=== PATIENT | female | born 1990 | race Caucasian/White ===

== ENCOUNTER → 2016-12-29 | Emergency (ER) | payer OTHER ==
[~2016-12-29] MED LIST: MACR100C2 PO; NAPR500 PO; ONDANSETRON ODT 4 MG TAB PO ONE; ZOFR4TAB3 SL
--- NOTE | 2016-12-29 19:53 | PD ---
HPI Chief Complaint nausea/vomiting and abdominal pain Date Seen: Dec 29, 2016 Travel History International Travel<30 Days: No Contact w/Intl Traveler<30Days: No Known Affected Area: No History of Present Illness HPI This is a 26y/o at 21w2d who presented to the [facility] with reports of RUQ pain , since 4pm, vaginal pain and nausea with vomiting at 4:30p. She denies vaginal bleeding or leakage of fluid with reports of active movements. She denies sick contacts or unusual foods. She is tolerating po liquids and ate a grilled cheese sandwich at noon. care with Dr. Shirley, no records available for review, care uncomplicated per patient. 1. Morbid obesity in . Para: 0 : 1 History Past Medical History Medical History: Denies Significant Hx Past Surgical History Narrative Surgical Left Knee surgery 2004 and 2009 Family History Family History: Negative Social History Alcohol Use: No Tobacco Use: No Substance Abuse: No Allergies-Medications (Allergen,Severity, Reaction): Coded Allergies: Sudafed (Verified Allergy, Severe, THROAT SWELLING, 01/05/16) Home Meds Active Scripts Naproxen (Naprosyn)500 Mg [id number] Mg PO BID #20 TAB Prov:Clifton Aguilera MD 01/05/16 Review of Systems Except as stated in HPI: all other systems reviewed are Neg Physical Exam Narrative GENERAL: Well-nourished, well-developed patient, + post tussive emesis SKIN: Warm and dry. HEAD: Normocephalic and atraumatic. EYES: No scleral icterus. No injection or drainage. ENT: No nasal drainage noted. Mucous membranes pink. Airway patent. NECK: Supple, trachea midline. No JVD. CARDIOVASCULAR: Regular rate and rhythm without murmurs, gallops, or rubs. RESPIRATORY: Breath sounds equal bilaterally. No accessory muscle use. BREASTS: Bilateral exam showed no masses , no retractions, no nipple discharge. ABDOMEN/GI: Abdomen soft, non-tender, bowel sounds present, no rebound, no guarding Gravid to 20 +weeks size GENITOURINARY: External Genitalia: intact and normal in appearance VE deferred Uterine Contractions: None FHT's: + EXTREMITIES: No cyanosis or edema. BACK: Nontender without obvious deformity. No CVA tenderness. NEUROLOGICAL: Awake and alert. Motor and sensory grossly within normal limits. Five out of 5 muscle strength in all muscle groups. Normal speech. Data Data Vital Signs Reviewed: Yes Orders Vital Signs (Adult) .ON ADMISSION (12/29/16 18:37) ^ Labor Status (12/29/16 18:37) Urinalysis - C+S If Indicated (12/29/16 18:37) Ondansetron Odt (Zofran Odt) (12/29/16 18:45) Labs Laboratory Tests Test 12/29/16 18:20 Urine Color YELLOW Urine Turbidity HAZY Urine pH 5.5 Urine Specific Miller 1.023 Urine Protein TRACE mg/dL Urine Glucose (UA) NEG mg/dL Urine Ketones NEG mg/dL Urine Occult Blood SMALL Urine Nitrite NEG Urine Bilirubin NEG Urine Urobilinogen LESS THAN 2.0 MG/DL Urine Leukocyte Esterase LARGE Urine RBC 6 /hpf Urine WBC 15 /hpf Urine Squamous Epithelial 26 /hpf Cells Urine Mucus FEW /lpf Microscopic Urinalysis Comment CULTURE INDICATED Renal ultrasound: no nephrolithiasis, no hydronephrosis noted MDM Medical Record Reviewed: No Narrative Course / MDM 26y/o at 21w2d who presents with reports of ruq pain. -ua negative -no evidence of PTL -received 1 dosage of Zofran and was tolerated a snack Plan -d/c home -f/u with Dr. Yeung as scheduled -rx zofran and macrobid Diagnosis Diagnosis: Primary Impression: Nausea and vomiting during prior to 22 weeks gestation Additional Impression: UTI (urinary tract infection) in in second trimester Disposition: 01 DISCHARGE HOME Condition: Good Scripts Nitrofurantoin Monohydrate Macrocrystals (Macrobid)100 Mg [id number] Mg PO BID #14 CAP Ref 0 Prov:Karen Rain MD 12/29/16 Ondansetron Odt (Zofran Odt)4 Mg Tab4 Mg SL Q6HR PRN (Nausea/Vomiting) #45 TAB Ref 1 Prov:Karen Rain MD 12/29/16 Patient Instructions: Abdominal Pain in (ED) Departure Forms: Work Release Enter return to work date: Dec 31, 2016 Special Instructions: Pt to be off work on 12/29 and 12/30. Karen Rain MD Dec 29, 2016 19:53
[2016-12-29 19:57] LABS: BLOOD, URINE SMALL (NEG); GLUCOSE,URINE NEG (NEG); KETONE, URINE NEG (NEG); MUCUS URINE FEW /lpf (OCC); NITRITE,URINE NEG (NEG); PH, URINE 5.5 (5.0-8.5); SQUAMOUS EPITHELIAL CELL URINE 26 /hpf (0-5); URINE COLOR YELLOW (YELLW/STRAW)
[2016-12-29 19:58] LABS: COMMENT (UR) CULTURE INDICATED; CULTURE IF INDICATED CULTURE INDICATED
--- NOTE | 2016-12-29 21:18 | RADRPT ---
EXAM DATE/TIME: 12/29/2016 20:28 [facility] COMPARISON: No previous studies available for comparison. INDICATIONS : Right flank pain. MEDICAL HISTORY : . SURGICAL HISTORY : Left knee surgery. ENCOUNTER: Initial ACUITY: 1 day PAIN SCORE: 6/10 LOCATION: Bilateral flank MEASUREMENTS: RIGHT KIDNEY: 13.4 x 6.1 x 6.9 cm LEFT KIDNEY: 13.6 x 6.4 x 6.6 cm FINDINGS: RIGHT KIDNEY: Renal cortex is normal in thickness and echotexture. No hydronephrosis, stone, or mass. LEFT KIDNEY: Renal cortex is normal in thickness and echotexture. No hydronephrosis, stone, or mass. BLADDER: Within normal limits given the degree of distension. CONCLUSION: No acute disease. Hilton Bear MD on December 29, 2016 at 21:15 Board Certified Radiologist. This report was verified electronically.
== END | disposition home or self-care (01) ==
LOC: HOBED 17:49
DX: O21.9 Vomiting of pregnancy, unspecified (principal); O23.42 Unspecified infection of urinary tract in pregnancy, second trimester; O99.212 Obesity complicating pregnancy, second trimester; Z3A.22 22 weeks gestation of pregnancy
CPT/HCPCS: 76775; 81001; 87086; 99284

== ENCOUNTER → 2017-02-27 | Outpatient (CLI) | payer OTHER ==
[~2017-02-27] MED LIST changes: -ONDANSETRON ODT 4 MG TAB PO ONE
[2017-02-27 11:29] LABS: HEMATOCRIT 36.4 % (35.0-46.0); REVIEW FLAG FINAL
== END ==
LOC: CLAB 09:32
PROVIDERS: ATTEND Obstetrics & Gynecology
DX: Z34.02 Encounter for supervision of normal first pregnancy, second trimester (principal)
CPT/HCPCS: 36415; 82951; 85014; 85018; 86703

== ENCOUNTER 2017-04-18 20:44 | Inpatient (IN) | payer OTHER ==
[~2017-04-18] VITALS: Ht 172.7 cm; Wt 145.0 kg
--- NOTE | 2017-04-18 21:29 | HHI.PR ---
Subjective Remarks NST report Indications: IUP at 37 weeks, morbid obesity, gestational hypertension heart rate with baseline in the 130s, moderate long-term variability, good accelerations, no decelerations noted. The category 1 heart rate tracing and a reactive NST Follow-up: As clinically indicated Final diagnosis IUP at 37 weeks, morbid obesity, gestational hypertension Rachana Avila MD Apr 18, 2017 21:29
[2017-04-18 21:30] VITALS: RESP 18
[2017-04-18] MEDS ORDERED: ACETAMIN 325 MG/BUTALBITAL 50 MG/CAFFEINE 40 MG TAB PO ONE (21:30)
[2017-04-18 21:31] VITALS: BP 110/66; PULSE 89
--- NOTE | 2017-04-18 21:35 | PD ---
HPI Chief Complaint Headache Travel History International Travel<30 Days: No Contact w/Intl Traveler<30Days: No Known Affected Area: No History of Present Illness HPI 26-year-old , IUP at 37.0 and care, complicated by history of migraine headache weeks, obesity, syphilis The patient presents reporting onset of headache at about 1:30 this afternoon. She took Tylenol at that time with no relief of her headache. There are no other aggravating or alleviating factors. She reports that last week when she went to the office her blood pressure was elevated in the 150s over 90s. When she got off work this evening she went to [facility] and took her blood pressure because of the headache. She reports her first blood pressure on automated machine was 153/88 and a follow-up with a diastolic of 96. She denies any visual changes, right upper quadrant, or epigastric pain. She denies any leaking of fluid, vaginal bleeding, or painful contractions or cramping. She reports normal movement. Weeks Gestation: 37 Para: 0 : 1 History Past Medical History Narrative Medical Migraine headaches Morbid obesity Obstetric History Obstetric History Past Surgical History Narrative Surgical Knee surgery 2 Family History Narrative Family History HTN Factor K blood disorder Social History Alcohol Use: No Tobacco Use: No Substance Abuse: No Allergies-Medications (Allergen,Severity, Reaction): Coded Allergies: pseudoephedrine (Unverified Allergy, Severe, THROAT SWELLING, 02/19/17) Home Meds Active Scripts Nitrofurantoin Monohydrate Macrocrystals (Macrobid) 100 Mg Cap, 100 MG PO BID for Infection, #14 CAP 0 Refills Prov:Karen Rain MD 12/29/16 Ondansetron Odt (Zofran Odt) 4 Mg Tab, 4 MG SL Q6HR Y for Nausea/Vomiting, #45 TAB 1 Refill Prov:Karen Rain MD 12/29/16 Naproxen (Naprosyn) 500 Mg Tab, 500 MG PO BID, #20 TAB Prov:Clifton Aguilera MD 01/05/16 Review of Systems Except as stated in HPI: all other systems reviewed are Neg Physical Exam Narrative GENERAL: Well-nourished, well-developed patient. SKIN: Warm and dry. HEAD: Normocephalic and atraumatic. EYES: No scleral icterus. No injection or drainage. ENT: No nasal drainage noted. Mucous membranes pink. Airway patent. NECK: Supple, trachea midline. No JVD. CARDIOVASCULAR: Regular rate and rhythm without murmurs, gallops, or rubs. RESPIRATORY: Breath sounds equal bilaterally. No accessory muscle use. BREASTS: Deferred ABDOMEN/GI: Abdomen soft, non-tender, bowel sounds present, no rebound, no guarding Gravid GENITOURINARY: Deferred EXTREMITIES: No cyanosis or edema. BACK: Nontender without obvious deformity. No CVA tenderness. NEUROLOGICAL: Awake and alert. Motor and sensory grossly within normal limits. Five out of 5 muscle strength in all muscle groups. Normal speech. Psychiatric: Grossly normal memory and affect Musculoskeletal: Grossly normal range of motion, gait, muscle strength Data Data Orders Orders [id number] 325-50-40 Mg (Fioricet 3 (04/18/17 21:30) Vital Signs (Adult) .ON ADMISSION (04/18/17 21:23) ^ Labor Status (04/18/17 21:23) Urinalysis - C+S If Indicated (04/18/17 21:23) ^ Non Stress Test (04/18/17 21:23) ^ Hydration (04/18/17 21:23) Cbc No Diff, Includes Plts (04/18/17 21:23) Comprehensive Metabolic Panel (04/18/17 21:23) Uric Acid (04/18/17 21:23) Protein Creat Ratio, Random Ur (04/18/17 21:25) MDM Plan Assessment/plan: 1. IUP at 37.0 2. Possible gestational hypertension versus preeclampsia: Patient with elevated blood pressures in the office last week according to her report. Patient self presented due to headache with elevated blood pressure at [facility]. Blood pressures are normal here but with slightly elevated AST, ALT, and PC ratio on laboratory evaluation. Discussed with Dr. Yeung, will admit for 24- hour urine and blood pressure monitoring. Strict preeclampsia precautions. 3. well-being: Reassuring testing with reactive NST and category 1 heart rate tracing. heart rate tracing reassuring and appropriate for gestational age. 4. Morbid obesity 5. History of syphilis 6. History of migraine headaches 7. Patient was scheduled to Follow-up with Dr. Yeung tomorrow for blood pressure check but will admit for 24-hour observation to rule out preeclampsia, Dr. Yeung aware Rachana Avila MD Apr 18, 2017 21:35
[2017-04-18 21:47] LABS: HEMATOCRIT 35.9 % (35.0-46.0); MEAN CELL VOLUME 79.3 FL (80.0-100.0); MEAN CORPUSCULAR HEMOGLOBIN 25.2 PG (27.0-34.0); MEAN CORPUSCULAR HGB CONC 31.7 % (32.0-36.0); PLATELET COUNT 253 TH/MM3 (150-450); RED BLOOD COUNT 4.53 MIL/MM3 (4.00-5.30); REVIEW FLAG FINAL; WHITE BLOOD COUNT 12.4 TH/MM3 (4.0-11.0)
[2017-04-18 21:54] LABS: BACTERIA, URINE RARE /hpf; BLOOD, URINE SMALL (NEG); COMMENT (UR) CULTURE INDICATED; CULTURE IF INDICATED CULTURE INDICATED; GLUCOSE,URINE NEG (NEG); KETONE, URINE NEG (NEG); MUCUS URINE FEW /lpf (OCC); NITRITE,URINE NEG (NEG); SQUAMOUS EPITHELIAL CELL URINE 4 /hpf (0-5); URINE COLOR YELLOW (YELLW/STRAW)
[2017-04-18 22:02] LABS: ALT (GPT) 67 U/L (10-53); ANION GAP 7 MEQ/L (5-15); AST (GOT) 38 U/L (15-37); BICARBONATE 23.6 MEQ/L (21.0-32.0); BLOOD UREA NITROGEN 9 MG/DL (7-18); CHLORIDE 108 MEQ/L (98-107); GLOMERULAR FILTRATION RATE 118 ML/MIN (>89); POTASSIUM 3.9 MEQ/L (3.5-5.1); SODIUM (NA) 139 MEQ/L (136-145)
[2017-04-18 22:06] LABS: ALKALINE PHOSPHATASE 161 U/L (45-117); TOTAL BILIRUBIN ADULT 0.2 MG/DL (0.2-1.0); URIC ACID 3.8 MG/DL (2.6-6.0)
[2017-04-18] MEDS ORDERED: ALUMINUM/MAGNESIUM/SIMETH 30 ML CUP PO PRN (22:45)
[2017-04-18] MEDS ORDERED: ACETAMINOPHEN 325 MG TAB PO PRN (22:45)
[2017-04-18] MEDS ORDERED: ZOLPIDEM TARTRATE 5 MG TAB PO PRN ×2 (22:45→23:15)
[2017-04-18] MEDS ORDERED: SODIUM CHLORIDE 0.9% FLUSH 10 ML FLUSH IV FLUSH PRN (22:45)
[2017-04-18] MEDS ORDERED: ONDANSETRON ODT 4 MG TAB PO PRN (22:45)
[2017-04-18] MEDS ORDERED: ONDANSETRON HCL 4 MG/2 ML VIAL IV PUSH PRN (22:45)
[2017-04-18 23:05] VITALS: RESP 18; TEMP 98.3
[2017-04-18 23:06] VITALS: BP 113/48; PULSE 84
[2017-04-19] VITALS (17 sets, daily range): BP systolic 111–154; BP diastolic 59–86; PULSE 87–124; RESP 18–20; TEMP 97.8–98.1
[2017-04-19] MEDS ORDERED: MULTIVIT/MIN/PREN/FOL AC/IRON PRENATAL TAB PO SCH (09:00)
[2017-04-19] MEDS ORDERED: DOCUSATE SODIUM 100 MG CAP PO SCH (09:00)
[2017-04-19] MEDS ORDERED: SODIUM CHLORIDE 0.9% FLUSH 10 ML FLUSH IV FLUSH SCH ×2 (09:00→21:00)
[2017-04-19 09:56] LABS: AUTOMATED NEUTROPHIL # 9.8 TH/MM3 (1.8-7.7); BASOPHIL % 0.1 % (0.0-2.0); EOSINOPHIL % 0.3 % (0.0-4.0); HEMATOCRIT 34.9 % (35.0-46.0); HEMO FLAGS DIFF FINAL; LYMPH % 15.1 % (9.0-44.0); LYMPHOCYTE # 1.8 TH/MM3 (1.0-4.8); MEAN CELL VOLUME 78.7 FL (80.0-100.0); MEAN CORPUSCULAR HEMOGLOBIN 25.8 PG (27.0-34.0); MEAN CORPUSCULAR HGB CONC 32.7 % (32.0-36.0); MONO % 3.7 % (0.0-8.0); NEUT % 80.8 % (16.0-70.0); PLATELET COUNT 229 TH/MM3 (150-450); RED BLOOD COUNT 4.43 MIL/MM3 (4.00-5.30); RED CELL DISTRIBUTION WIDTH 15.7 % (11.6-17.2); WHITE BLOOD COUNT 12.1 TH/MM3 (4.0-11.0)
[2017-04-19 10:16] LABS: ANION GAP 9 MEQ/L (5-15); AST (GOT) 40 U/L (15-37); BICARBONATE 21.1 MEQ/L (21.0-32.0); BLOOD UREA NITROGEN 5 MG/DL (7-18); CHLORIDE 104 MEQ/L (98-107); GLOMERULAR FILTRATION RATE 121 ML/MIN (>89); POTASSIUM 3.7 MEQ/L (3.5-5.1); SODIUM (NA) 134 MEQ/L (136-145)
[2017-04-19 10:18] LABS: ALT (GPT) 61 U/L (10-53)
[2017-04-19 10:19] LABS: ALKALINE PHOSPHATASE 149 U/L (45-117); TOTAL BILIRUBIN ADULT 0.3 MG/DL (0.2-1.0)
[2017-04-19] MEDS ORDERED: MISOPROSTOL 100 MCG TAB VAGINAL ONE (14:45)
[2017-04-19] MEDS ORDERED: PILL SPLITTER OTHER PRN (14:45)
[2017-04-19] MEDS ORDERED: SODIUM CHLOR 0.9% 1000 ML INJ 1,000 ML OTHER PRN (16:08)
[2017-04-19] MEDS ORDERED: OXYTOCIN 30 UNITS 500ML PREMIX IV ONE (16:15)
[2017-04-19] MEDS ORDERED: MINERAL OIL 10 ML VIAL TOPICAL PRN (16:15)
[2017-04-19] MEDS ORDERED: OXYTOCIN 30 UNITS-500ML PREMIX 500 ML IV SCH (16:15)
[2017-04-19] MEDS ORDERED: SODIUM CHLORIDE 0.9% FLUSH 10 ML FLUSH IV FLUSH PRN (16:15)
[2017-04-19] MEDS ORDERED: MISOPROSTOL 25 MCG SUPP VAGINAL PRN (16:15)
[2017-04-19] MEDS ORDERED: LIDOCAINE HCL 1% 50 ML VIAL INFIL PRN (16:15)
[2017-04-19] MEDS ORDERED: NS 1000 ML IV PRN (16:30)
[2017-04-19] MEDS ORDERED: NS 500 ML BOLUS IV PRN (16:30)
[2017-04-19] MEDS ORDERED: LACTATED RINGER'S 1000 ML IV SCH (16:30)
[2017-04-19] MEDS ORDERED: CITRIC ACID-SODIUM CITRATE LIQ 30 ML UDC PO SCH (16:30)
[2017-04-19] MEDS ORDERED: LIDOCAINE HCL 1% 50 ML VIAL I-DERMAL PRN (16:30)
[2017-04-19] MEDS ORDERED: ONDANSETRON HCL 4 MG/2 ML VIAL IV PUSH PRN (16:30)
[2017-04-19] MEDS ORDERED: LACTATED RINGER'S 1000 ML BOLUS IV PRN (16:30)
[2017-04-19] MEDS ORDERED: MISOPROSTOL 25 MCG SUPP VAGINAL SCH (19:15)
[2017-04-20] VITALS (105 sets, daily range): BP systolic 67–158; BP diastolic 19–105; PULSE 73–178; RESP 18–22; TEMP 97.7–98.6
--- NOTE | 2017-04-20 13:06 | HHI.PR ---
Subjective Remarks Doing well, Pain is controlled with the fentanyl. Feeling ok Objective Vital Signs Date Time Temp Pulse Resp B/P (MAP) Pulse Ox O2 Delivery O2 Flow Rate FiO2 04/20/17 12:40 98.6 04/20/17 12:40 18 04/20/17 12:32 79 143/51 (81) 04/20/17 12:09 89 142/64 (90) 04/20/17 11:26 89 126/73 (90) 04/20/17 11:17 147 04/20/17 11:17 67/45 (52) 04/20/17 11:01 86/70 (75) 04/20/17 10:31 82 146/76 (99) 04/20/17 10:16 86 138/88 (105) 04/20/17 10:01 78 131/87 (102) 04/20/17 09:46 104 139/88 (105) 04/20/17 09:27 82 148/92 (110) 04/20/17 09:01 89 144/80 (101) 04/20/17 08:46 83 135/80 (98) 04/20/17 08:31 90 118/68 (85) 04/20/17 08:16 88 135/47 (76) 04/20/17 08:01 88 118/72 (87) 04/20/17 07:46 116 04/20/17 07:31 73 117/97 (104) 04/20/17 07:25 86 128/70 (89) 04/20/17 07:24 84 111/98 (102) 04/20/17 07:01 87 129/79 (96) 04/20/17 06:01 82 131/58 (82) 04/20/17 05:50 97.7 04/20/17 05:33 18 04/20/17 05:01 97 146/64 (91) 04/20/17 04:01 84 148/70 (96) 04/20/17 04:00 18 04/20/17 03:59 83 148/65 (92) 04/20/17 01:50 97.8 18 04/20/17 01:10 85 122/68 (86) 04/20/17 01:00 18 04/20/17 00:02 100 97/72 (80) 04/19/17 23:50 18 04/19/17 22:53 18 04/19/17 22:02 106 111/63 (79) 04/19/17 22:00 98.0 18 04/19/17 21:32 87 140/78 (98) 04/19/17 20:01 100 131/79 (96) 04/19/17 19:42 104 125/59 (81) 04/19/17 18:24 95 154/63 (93) 04/19/17 16:00 18 04/19/17 16:00 98.1 04/19/17 15:10 102 153/71 (98) Result Diagram: 04/19/1792004/19/17920 Other Results Abdomen is gravid and non tender Cx 4/80/Vtx/-2 AROM is clear and internals placed Ext slg swollen Assessment and Plan Assessment and Plan IUP @ 37/2 Pre eclampsia elevated LFTs, Proteinuria, elevated pressure. AROM done now and internalized and expect a . Cecil Yeung MD Apr 20, 2017 13:06
[2017-04-20] MEDS ORDERED: MEASLES, MUMPS, RUBELLA VACCINE 0.5 ML VIAL SQ ONE (16:00)
[2017-04-20] MEDS ORDERED: DIPHTH/TETANUS/ACEL PERTUSSIS (BOOSTER) 0.5 ML VIAL/PFS IM ONE (16:00)
[2017-04-20] MEDS ORDERED: fentaNYL 2MCG-BUPIV 0.125% INJ 100 ML ONE (16:24)
[2017-04-20] MEDS ORDERED: LIDOCAINE HCL 1% PF 5 ML AMPULE ONE (16:45)
[2017-04-20] MEDS ORDERED: ePHEDrine/NS 25 MG/5 ML SYR ONE (17:11)
--- NOTE | 2017-04-20 20:05 | PD.OB.DELI ---
Weeks gestation: 37 Gest age assessed date: Apr 19, 2017 Pt started active labor?: Yes Active labor start date: Apr 19, 2017 Medical induction of labor?: Yes Medical induction start date: Apr 19, 2017 Artificial rupture of membrane: Yes Artificial ROM date: Apr 20, 2017 Anesthesia: Epidural Episiotomy: Midline Vaginal Delivery: Normal Presentation: Occiput anterior Nuchal Cord: x1 Delayed cord clamping (45 sec): Yes Infant: Female Delivery date: Apr 20, 2017 One Minute : 8 Five Minute : 9 Weight: 6/3 Placenta: Spontaneous delivery Laceration: Episiotomy, 1 deg Repair: Vicryl running Estimated blood loss: 300cc Additional Information Nice delivery of Afua Bilateral first degree upper labial lacerations Small first degree perineal laceration All repaired with 3-0 and 4-0 vicryl. Cecil Yeung MD Apr 20, 2017 20:05
[2017-04-20] MEDS ORDERED: DOCUSATE SODIUM 50 MG/SENNA 8.6 MG TAB PO PRN (20:15)
[2017-04-20] MEDS ORDERED: WITCH HAZEL 50%/GLYCERIN 12.5% 40 PAD JAR TOPICAL PRN (20:15)
[2017-04-20] MEDS ORDERED: CALCIUM GLUCONATE 10% 1 GM/10 ML VIAL IV PUSH PRN (20:15)
[2017-04-20] MEDS ORDERED: oxyCODONE/ACETAMINOPHEN 5 MG/325 MG TAB PO PRN (20:15)
[2017-04-20] MEDS ORDERED: OXYTOCIN 30 UNITS-500ML PREMIX 500 ML IV ONE (20:15)
[2017-04-20] MEDS ORDERED: OXYTOCIN 30 UNITS-500ML PREMIX 500 ML IV SCH (20:15)
[2017-04-20] MEDS ORDERED: ONDANSETRON ODT 4 MG TAB PO PRN (20:15)
[2017-04-20] MEDS ORDERED: BENZOCAINE 20% TOPICAL SPRAY 60 ML CAN TOPICAL PRN (20:15)
[2017-04-20] MEDS ORDERED: MAGNESIUM SULFATE 4 GM PREMIX 100 ML IV ONE (20:15)
[2017-04-20] MEDS ORDERED: ZOLPIDEM TARTRATE 5 MG TAB PO PRN (20:15)
[2017-04-20] MEDS ORDERED: ACETAMINOPHEN 325 MG TAB PO PRN (20:15)
[2017-04-20] MEDS ORDERED: SODIUM CHLORIDE 0.9% FLUSH 10 ML FLUSH IV FLUSH PRN (20:15)
[2017-04-20] MEDS ORDERED: ALUMINUM/MAGNESIUM/SIMETH 30 ML CUP PO PRN (20:15)
[2017-04-20] MEDS: MAGNESIUM SULFATE 40 GM PREMIX 1,000 ML IV SCH (21:00)
[2017-04-20] MEDS: SODIUM CHLORIDE 0.9% FLUSH 10 ML FLUSH IV FLUSH SCH (21:00)
[2017-04-21] VITALS (29 sets, daily range): BP systolic 132–171; BP diastolic 42–81; PULSE 93–144; RESP 17–22; TEMP 97.7–98.2; O2SAT 98
[2017-04-21 08:35] LABS: AUTOMATED NEUTROPHIL # 12.7 TH/MM3 (1.8-7.7); BASOPHIL # 0.1 TH/MM3 (0-0.2); BASOPHIL % 0.3 % (0.0-2.0); EOSINOPHIL % 0.3 % (0.0-4.0); HEMATOCRIT 32.8 % (35.0-46.0); HEMO FLAGS DIFF FINAL; LYMPH % 10.6 % (9.0-44.0); LYMPHOCYTE # 1.7 TH/MM3 (1.0-4.8); MEAN CORPUSCULAR HGB CONC 31.7 % (32.0-36.0); MONO % 7.6 % (0.0-8.0); NEUT % 81.2 % (16.0-70.0); PLATELET COUNT 271 TH/MM3 (150-450); RED BLOOD COUNT 4.16 MIL/MM3 (4.00-5.30); RED CELL DISTRIBUTION WIDTH 16.6 % (11.6-17.2); WHITE BLOOD COUNT 15.7 TH/MM3 (4.0-11.0)
[2017-04-21 09:12] LABS: ALKALINE PHOSPHATASE 134 U/L (45-117); ALT (GPT) 113 U/L (10-53); ANION GAP 11 MEQ/L (5-15); AST (GOT) 76 U/L (15-37); BICARBONATE 22.4 MEQ/L (21.0-32.0); BLOOD UREA NITROGEN 7 MG/DL (7-18); CHLORIDE 104 MEQ/L (98-107); GLOMERULAR FILTRATION RATE 118 ML/MIN (>89); POTASSIUM 3.8 MEQ/L (3.5-5.1); SODIUM (NA) 137 MEQ/L (136-145); TOTAL BILIRUBIN ADULT 0.2 MG/DL (0.2-1.0)
[2017-04-21] MEDS: IBUPROFEN 600 MG TAB PO PRN ×2 (12:20→18:26)
[2017-04-21] MEDS ORDERED: DIPHTH/TETANUS/ACEL PERTUSSIS (BOOSTER) 0.5 ML VIAL/PFS IM ONE (12:45)
--- NOTE | 2017-04-21 16:45 | HHI.OB ---
Subjective Post Day: 1 Remarks Doing well Baby is good Bleeding is normal Pain is controlled Objective Vitals/I&O Vital Signs Date Time Temp Pulse Resp B/P (MAP) Pulse Ox O2 Delivery O2 Flow Rate FiO2 04/21/17 15:17 93 143/77 04/21/17 13:00 18 04/21/17 11:01 156/80 (105) 04/21/17 11:01 112 04/21/17 09:01 115 152/69 (96) 04/21/17 09:00 18 04/21/17 08:00 18 04/21/17 07:51 111 147/57 (87) 04/21/17 07:45 98.0 04/21/17 07:33 109 164/75 (104) 04/21/17 07:26 105 160/81 (107) 04/21/17 07:01 111 171/78 (109) 04/21/17 06:01 93 170/68 (102) 04/21/17 06:00 18 04/21/17 05:00 18 04/21/17 04:01 144 148/42 (77) 04/21/17 03:00 97.7 18 04/21/17 02:01 95 150/66 (94) 04/21/17 01:15 18 04/21/17 01:01 106 142/60 (87) 04/21/17 00:45 18 04/21/17 00:33 110 135/65 (88) 04/21/17 00:15 18 04/21/17 00:01 95 132/55 (80) 04/20/17 23:15 97.9 18 04/20/17 23:02 130 127/97 (107) 04/20/17 22:01 119 135/62 (86) 04/20/17 21:46 128 132/84 (100) 04/20/17 21:31 124 120/100 (107) 04/20/17 21:26 116 157/75 (102) 04/20/17 21:16 113 143/68 (93) 04/20/17 21:10 116 140/66 (90) 04/20/17 21:01 111 141/58 (85) 04/20/17 21:00 98.0 04/20/17 20:56 110 150/60 (90) 04/20/17 20:47 118 154/64 (94) 04/20/17 20:35 18 04/20/17 20:30 18 04/20/17 20:16 115 121/70 (87) 04/20/17 20:15 18 04/20/17 20:02 120 102/19 (46) 04/20/17 20:00 18 04/20/17 19:46 108 143/49 (80) 04/20/17 19:45 98.0 18 04/20/17 19:31 114 143/93 (110) 04/20/17 19:11 115 148/88 (108) 04/20/17 19:01 91 121/60 (80) 04/20/17 18:51 113 106/56 (73) 04/20/17 18:50 131 04/20/17 18:45 101 04/20/17 18:41 110 109/72 (84) 04/20/17 18:40 83 04/20/17 18:35 85 04/20/17 18:32 75 122/52 (75) 04/20/17 18:30 88 04/20/17 18:25 98 04/20/17 18:21 91 123/66 (85) 04/20/17 18:20 93 04/20/17 18:15 96 04/20/17 18:11 92 128/58 (81) 04/20/17 18:01 92 120/72 (88) 04/20/17 18:00 101 04/20/17 17:55 103 04/20/17 17:51 105 97/59 (72) 04/20/17 17:50 99 04/20/17 17:45 102 04/20/17 17:41 96 127/67 (87) 04/20/17 17:40 98 04/20/17 17:35 91 04/20/17 17:31 95 151/66 (94) 04/20/17 17:30 86 04/20/17 17:30 98.4 18 04/20/17 17:20 92 04/20/17 17:19 98 150/57 (88) 04/20/17 17:16 81 158/47 (84) 04/20/17 17:15 86 04/20/17 17:13 80 141/58 (85) 04/20/17 17:10 96 10/14/17 17:10 135/44 (74) 04/20/17 17:07 178 125/97 (106) 04/20/17 17:05 90 04/20/17 17:04 89 152/55 (87) 04/20/17 17:01 97 144/77 (99) 04/20/17 17:00 102 04/20/17 16:58 98 145/65 (91) 04/20/17 16:55 104 04/20/17 16:51 106 132/105 (114) 04/20/17 16:50 113 04/20/17 16:45 113 Intake & Output 04/21/17 04/21/17 07:00 19:00 Intake Total 0 ml Balance 0 ml Blood Product IV Normal Saline Flush 0 ml Objective Remarks GENERAL: Well-nourished, well-developed patient. RESPIRATORY: No accessory muscle use. ABDOMEN/GI: Abdomen soft, non-tender. Fundus: Firm, non-tender at umbilicus. GENITOURINARY: Light to moderate bleeding. EXTREMITIES: No cyanosis or edema, non-tender, without signs of DVT. Medications and IVs Current Medications Medications (Trade) Dose Ordered Sig/Tamia Route Start Time Stop Time Status Last Admin (NS Flush) 2 ml BID IV FLUSH 04/20/17 21:00 (NS Flush) 2 ml UNSCH PRN IV FLUSH 04/20/17 20:15 (Tylenol) 650 mg Q4H PRN PO 04/20/17 20:15 04/21/17 08:04 (Motrin) 600 mg Q6H PRN PO 04/20/17 20:15 04/21/17 12:20 (Percocet 5-325 Mg) 1 tab Q4H PRN PO 04/20/17 20:15 (Americaine 20% Top Spr) 1 spray Q4H PRN TOPICAL 04/20/17 20:15 (Tucks Pads) 1 applic QID PRN TOPICAL 04/20/17 20:15 04/21/17 08:05 (Tatianna-Colace) 2 tab Q12H PRN PO 04/20/17 20:15 (Ambien) 5 mg HS PRN PO 04/20/17 20:15 (Mag-Al Plus Susp Liq) 15 ml Q8H PRN PO 04/20/17 20:15 (Zofran Odt) 4 mg Q6H PRN PO 04/20/17 20:15 Magnesium Sulfate 1,000 ml @ 50 mls/hr Q20H IV 04/20/17 20:10 04/20/17 21:00 (Calcium Gluconate Inj) 1 gm UNSCH PRN IV PUSH 04/20/17 20:15 Assessment/Plan Assessment and Plan PPD #1 Pre eclampsia her lfts are increasing so will continue the MgSO4 for 24 hours. Will check the lfts tomorrow. Anemia will start fe in the near future. Cecil Yeung MD Apr 21, 2017 16:45
[2017-04-21] MEDS: MAGNESIUM SULFATE 40 GM PREMIX 1,000 ML IV SCH (17:11)
[2017-04-21] MEDS: SODIUM CHLORIDE 0.9% FLUSH 10 ML FLUSH IV FLUSH SCH (20:43)
[2017-04-22 00:22] VITALS: TEMP 98.4
[2017-04-22] MEDS: IBUPROFEN 600 MG TAB PO PRN ×2 (00:22→06:04)
[2017-04-22 03:40] VITALS: BP 144/84; PULSE 88; RESP 18; TEMP 98.2
[2017-04-22 06:32] LABS: AUTOMATED NEUTROPHIL # 8.2 TH/MM3 (1.8-7.7); BASOPHIL # 0.1 TH/MM3 (0-0.2); BASOPHIL % 0.5 % (0.0-2.0); EOSINOPHIL # 0.2 TH/MM3 (0-0.4); EOSINOPHIL % 1.7 % (0.0-4.0); HEMATOCRIT 27.7 % (35.0-46.0); HEMO FLAGS DIFF FINAL; LYMPH % 21.2 % (9.0-44.0); LYMPHOCYTE # 2.5 TH/MM3 (1.0-4.8); MEAN CELL VOLUME 80.4 FL (80.0-100.0); MEAN CORPUSCULAR HEMOGLOBIN 25.7 PG (27.0-34.0); MONO % 7.6 % (0.0-8.0); PLATELET COUNT 204 TH/MM3 (150-450); RED BLOOD COUNT 3.45 MIL/MM3 (4.00-5.30); RED CELL DISTRIBUTION WIDTH 16.1 % (11.6-17.2); WHITE BLOOD COUNT 11.9 TH/MM3 (4.0-11.0)
[2017-04-22 06:40] LABS: ANION GAP 7 MEQ/L (5-15); AST (GOT) 42 U/L (15-37); BICARBONATE 24.8 MEQ/L (21.0-32.0); BLOOD UREA NITROGEN 8 MG/DL (7-18); CHLORIDE 108 MEQ/L (98-107); GLOMERULAR FILTRATION RATE 108 ML/MIN (>89); POTASSIUM 3.9 MEQ/L (3.5-5.1); SODIUM (NA) 140 MEQ/L (136-145)
[2017-04-22 06:41] LABS: ALKALINE PHOSPHATASE 117 U/L (45-117); ALT (GPT) 86 U/L (10-53); TOTAL BILIRUBIN ADULT 0.1 MG/DL (0.2-1.0)
[2017-04-22 09:00] VITALS: BP 147/85; PULSE 95; RESP 17; TEMP 97.7
[2017-04-22 16:00] VITALS: BP 120/87; PULSE 91; RESP 16; TEMP 98.3
== END 2017-04-22 16:47 | disposition home or self-care (01) | DRG 774 ==
LOC: HOBED 20:44 → H2EA 22:36 → OBSVTOIN 04-19 14:47 → H2EB 04-19 17:42 → H2EA 04-21 00:22 → H1EA 04-21 20:19
PROVIDERS: ADMIT Obstetrics & Gynecology; ATTEND Obstetrics & Gynecology
PROC: 3E0P3VZ Introduction of Hormone into Female Reproductive, Percutaneous Approach (ICD-10-PCS; 2017-04-19)
PROC: 10E0XZZ Delivery of Products of Conception, External Approach (ICD-10-PCS; principal; 2017-04-20)
PROC: 0HQ9XZZ Repair Perineum Skin, External Approach (ICD-10-PCS; 2017-04-20)
PROC: 0W8NXZZ Division of Female Perineum, External Approach (ICD-10-PCS; 2017-04-20)
PROC: 10907ZC Drainage of Amniotic Fluid, Therapeutic from Products of Conception, Via Natural or Artificial Opening (ICD-10-PCS; 2017-04-20)
DX: O14.94 Unspecified pre-eclampsia, complicating childbirth (principal); O98.12 Syphilis complicating childbirth; Z68.42 Body mass index [BMI] 45.0-49.9, adult; O99.354 Diseases of the nervous system complicating childbirth; O13.4 Gestational [pregnancy-induced] hypertension without significant proteinuria, complicating childbirth; G43.909 Migraine, unspecified, not intractable, without status migrainosus; O99.214 Obesity complicating childbirth; E66.01 Morbid (severe) obesity due to excess calories; O69.81X0 Labor and delivery complicated by cord around neck, without compression, not applicable or unspecified; O70.0 First degree perineal laceration during delivery; O99.02 Anemia complicating childbirth; D64.9 Anemia, unspecified; Z37.0 Single live birth; Z3A.37 37 weeks gestation of pregnancy
CPT/HCPCS: 80053; 81001; 82570; 84156; 84550; 85025; 85027; 85461; 86850; 86900; 86901; 87086; 90384; 90715; J2590; J2790; J3010; J3475; J7120